=== PATIENT | male | born 1950 | race Caucasian/White ===

== ENCOUNTER 2023-05-20 10:33 | Emergency (ER) | payer OTHER, SELFPAY ==
[2023-05-20 10:36] VITALS: BP 129/81; PULSE 71; RESP 16; TEMP 37.2; O2SAT 98; BMI 23.3
--- NOTE | 2023-05-20 11:19 | EDS_ITS ---
HPI <GIRMA Redmond - Last Filed: 05/20/23 14:35> History of Present Illness Chief Complaint: Dental Narrative Narrative: Patient presenting due to dental pain that he has had for almost 2 months. He reports that he had a right upper molar removed by an oral surgeon on 04/01/2023. He was referred to the or oral surgeon due to having dental pain to this tooth and has been on 4 different courses of antibiotics. Antibiotics do not seem to be helping his pain. He reports that the pain is sometimes reproduced by touching the right side of his cheek or right eyelash or putting a hat on his head. However, he does also experience the symptoms on the left side of his face at times. reports intermittent subjective fevers. He reports that the pain is worsened by eating and his appetite has been decreased and he thinks he has been losing weight because of that. PFSH <GIRMA Redmond - Last Filed: 05/20/23 14:35> PFSH Home Medications hydrocodone-acetaminophen 5-325mg 5mg-325mg 1 tab PO Q4H PRN PRN Pain 2 days #7 TABLETS 05/20/23 [Rx Last Taken Unknown] Allergy/AdvReac Type Severity Reaction Status Date / Time No Known Allergies Allergy Verified 05/20/23 10:35 Social History Smoking Status: Former smoker ROS <GIRMA Redmond - Last Filed: 05/20/23 14:35> ROS ED Constitutional Constitutional ED: Denies chills or fever(s) ENT ENT ED: Reports dental pain Cardiovascular Cardiovascular: Denies chest pain Respiratory/Chest Respiratory/Chest: Denies cough or dyspnea Gastrointestinal Gastrointestinal: Denies abdominal pain, nausea or vomiting Musculoskeletal Musculoskeletal: Denies arthralgias or myalgias Integumentary Denies abscess or rash Neurologic Neurologic: Denies paresthesias or weakness EXAM <GIRMA Redmond - Last Filed: 05/20/23 14:35> Physical Exam Const Vital Signs: 05/20/23 10:36 05/20/23 13:12 Temperature 99 F 98.6 F Temperature Source Temporal Pulse Rate 71 64 Respiratory Rate 16 15 Blood Pressure 129/81 H 133/72 H Blood Pressure Mean 97 92 Pulse Ox 98 97 Oxygen Delivery Method Room Air Positive well nourished, well developed and no apparent distress General Appearance ED: well developed HEENT Reports normocephalic and head/scalp atraumatic HEENT Narrative: Right mandibular second molar removed, no abscess, no trismus. No pain to palpation to the right temporal region. Mouth ED: Yes moist mucous membranes normal Eyes PERRL and EOMs intact bilaterally Neck full ROM and supple Chest Wall inspection of chest normal Resp normal respiratory effort and clear to auscultation bilaterally Cardio regular rate and regular rhythm GI soft to palpation, non-tender, non-distended and no masses Back/Spine normal ROM and normal to inspection Extremity normal to inspection and full ROM Neuro oriented x3, CN's II-XII intact bilaterally, moves all extremities, no focal motor deficits and no sensory deficits noted Sensorium / Orientation: awake and alert Psych mental status grossly normal and thought process normal Skin no rashes or lesions noted and no wounds <Dr. Tom Barreto MD - Last Filed: 05/20/23 15:07> Physical Exam Const Vital Signs: 05/20/23 10:36 05/20/23 13:12 Temperature 99 F 98.6 F Temperature Source Temporal Pulse Rate 71 64 Respiratory Rate 16 15 Blood Pressure 129/81 H 133/72 H Blood Pressure Mean 97 92 Pulse Ox 98 97 Oxygen Delivery Method Room Air MDM <GIRMA Redmond - Last Filed: 05/20/23 14:35> [facility] Narrative Medical decision making narrative: Patient presenting today due to right upper dental pain he has had over the past few months. He has been on multiple rounds of antibiotics and has had his right upper molar removed by dental surgeon in March. He is now reporting that he will get a sharp spasming like pain to his face just from touching an eyelash or putting a hat on his head. I did consider trigeminal neuralgia and temporal arteritis, however, the pain is nonspecific and usually is on the right side of his face but he will also at times feel it on the left side of his face which is not consistent with these conditions. Se sinus/facial CT obtained and shows lucencies in the right upper teeth, no drainable abscess, it also shows sinus disease. He does have tenderness to his maxillary sinuses on exam. The reports that he had sinusitis for several months but has not tried taking any decongestants. Given he has already been on multiple rounds of antibiotics, I do not feel that he needs any additional antibiotics. I have encouraged that he obtain [id number] decongestants and begin taking those, follow-up with his PCP, and follow-up with the dentist due to patient having multiple cavities seen on exam and on CT scan on the right upper side. He was given [place] here for pain and will be given a few for home. Discharged home in stable condition and is comfortable with plan. Radiography Diagnostic Testing: Clinical Impression(s) from Imaging Studies Facial/Sinus 05/20/23 11:48 IMPRESSION: 1. Lucencies/cavitary lesion in right upper teeth. 2. No evidence of discrete fluid collection or drainable abscess. 3. Sinus disease. Electronically Signed: Kelton Aviles MD at 12:29 EST , <Dr. Tom Barreto MD - Last Filed: 05/20/23 15:07> [facility] Narrative Medical decision making narrative: Patient presenting today due to right upper dental pain he has had over the past few months. He has been on multiple rounds of antibiotics and has had his right upper molar removed by dental surgeon in March. He is now reporting that he will get a sharp spasming like pain to his face just from touching an eyelash or putting a hat on his head. I did consider trigeminal neuralgia and temporal arteritis, however, the pain is nonspecific and usually is on the right side of his face but he will also at times feel it on the left side of his face which is not consistent with these conditions. Se sinus/facial CT obtained and shows lucencies in the right upper teeth, no drainable abscess, it also shows sinus disease. He does have tenderness to his maxillary sinuses on exam. The reports that he had sinusitis for several months but has not tried taking any de congestants. Given he has already been on multiple rounds of antibiotics, I do not feel that he needs any additional antibiotics. I have encouraged that he obtain [id number] decongestants and begin taking those, follow-up with his PCP, and follow-up with the dentist due to patient having multiple cavities seen on exam and on CT scan on the right upper side. He was given [facility] here for carlos n and will be given a few for home. Discharged home in stable condition and is comfortable with plan. I have personally performed a face to face assessment of the patient and have reviewed the [place] Note. I performed a substantive portion of the visit including all aspects of the following. My cheng findings include: History is patient had a right upper molar extracted, tooth #30 by his dentist. He has completed 3 courses of antibiotics. He continues to have pain over the right maxillary region and area of extraction. He does have history of sinus infection. He denies fever, chills night sweats. [place] double vision, blurred vision loss of vision. He reports mild congestion. He denies difficulty opening closing his mouth. He denies change in voice. He denies neck pain or neck stiffness. He denies history medic fever, heart murmur or mitral valve prolapse. He is not on any immunosuppressive meds. Exam is remarkable for tenderness over the right and left maxillary sinus more so right. Socket is still empty. He has significant dental disease with obvious caries. There is no evidence of periodontal abscess. There is no facial swelling or cellulitis. There is no preauricular lymphadenopathy. There is no submandibular lymphadenopathy. Trachea is midline. There is no stridor. There is no dysphonia. There is no concern for masseter space infection. Medical Decision Making CT of sinuses was obtained since he has completed 3 courses of antibiotics and has frontal sinus tenderness. CT does reveal evidence of maxillary sinusitis. He also has multiple dental caries. Suspect the pain is due to the multiple dental caries and not the sinusitis since he has completed 3 course of antibiotics which included amoxicillin, Augmentin and an additional antibiotic. Other additions or changes: Discharged home to follow-up with his dentist Radiography Diagnostic Testing: Clinical Impression(s) from Imaging Studies Facial/Sinus 05/20/23 11:48 IMPRESSION: 1. Lucencies/cavitary lesion in right upper teeth. 2. No evidence of discrete fluid collection or drainable abscess. 3. Sinus disease. Electronically Signed: Kelton Aviles MD at 12:29 EST , Discharge Plan Triage Chief Complaint: Dental ED Midlevel Provider: Daiana Gautam ED Provider: Tom Barreto Dx/Rx/DC Orders Clinical Impression: Dental caries, Sinusitis, Pain, dental Instructions: ED Dental Cavity, ED Sinusitis (Not Bacterial) Prescriptions: New hydrocodone-acetaminophen 5-325 mg tablet 1 tab PO Q4H PRN PRN (Reason: Pain) 2 Days Qty: 7 0RF Primary Care Provider: [facility] Referrals: [place] [Primary Care Provider] - Activity Restrictions/Additional Instructions: Please follow-up with the dentist. Begin taking an [id number] decongestant such as Mucinex for the sinus pressure. Follow-up with PCP. Disposition Disposition: Home, Self Care Discharge Date/Time: 05/20/23 13:13
--- NOTE | 2023-05-20 11:48 | CT_ITS ---
INDICATION: pain EXAMINATION: CT FACIAL BONES - CT Maxillofacial W/O Contrast Injection TECHNIQUE: Helically acquired images were obtained of the facial bones. A radiation dose optimization technique was used for this scan. IV Contrast dosage and agent: None. RADIATION DOSAGE (If Supplied By Facility): CTDIvol = ( 29.38 ) mGy, DLP = ( 598.88 ) mGycm COMPARISON: No relevant prior comparison study available FINDINGS: SOFT TISSUES: No focal subcutaneous swelling. No discrete fluid collections. VISUALIZED PARANASAL SINUSES: Mucosal thickening of the ethmoids and maxillary sinuses with possible retention cysts in the maxillary sinuses. VISUALIZED MASTOID AIR CELLS: Clear. FACIAL BONES, MANDIBLE AND TMJs: No displaced facial bone fracture. No lytic or blastic abnormality. VISUALIZED DENTITION: Lucencies consistent with cavitary lesions in right upper teeth probably number 3 and 4. ORBITAL CONTENTS: Both globes, extraocular muscles and retrobulbar fat appear unremarkable. CT/Sinus/Facial Bone IMPRESSION: 1. Lucencies/cavitary lesion in right upper teeth. 2. No evidence of discrete fluid collection or drainable abscess. 3. Sinus disease. Electronically Signed: Kelton Aviles MD at 12:29 EST ,
[2023-05-20] MEDS: HYDROcodone Bitartrate/Apap 5/325 Tablet PO (11:49)
[2023-05-20 13:12] VITALS: BP 133/72; PULSE 64; RESP 15; TEMP 37; O2SAT 97
== END 2023-05-20 13:13 | disposition home or self-care (01) ==
PROVIDERS: Emergency Provider Emergency Medicine; Visit Provider Emergency Medicine
DX: K08.89 Other specified disorders of teeth and supporting structures (principal); K02.9 Dental caries, unspecified; J32.0 Chronic maxillary sinusitis; Z87.891 Personal history of nicotine dependence; Z98.818 Other dental procedure status
CPT/HCPCS: 70486; 99282

== ENCOUNTER 2024-05-24 13:04 | Emergency (ER) | payer OTHER, SELFPAY ==
[2024-05-24 13:07] VITALS: BP 114/65; PULSE 61; PULSE 64; RESP 10; RESP 15; TEMP 36.4; O2SAT 98; BMI 24.9
--- NOTE | 2024-05-24 13:20 | RAD_ITS ---
PROCEDURE: CHEST 1 VIEW (PORTABLE) REASON FOR EXAM: 74-year-old male, syncope. TECHNIQUE: Frontal view of the chest. COMPARISON: None. FINDINGS: The heart size is normal. Calcification of the thoracic aorta. No focal consolidation, pleural effusion or pneumothorax. Degenerative changes are identified within the thoracic spine. RAD/Chest 1 View (Portable) IMPRESSION: NEGATIVE CHEST. Reading Location: [id number]
--- NOTE | 2024-05-24 13:21 | EKG12_ITS ---
Test Reason : ALT Blood Pressure : */* mmHG Vent. Rate : 62 BPM Atrial Rate : 62 BPM P-R Int : 142 ms QRS Dur : 84 ms QT Int : 412 ms P-R-T Axes : 50 42 42 degrees QTcB Int : 418 ms Normal sinus rhythm Normal ECG Confirmed by Twin Hardin ([id number]), non linear editor DARWIN POLLACK ([id number]) on 05/25/2024 11:03:11 AM Referred By: Confirmed By: Twin Hardin
[2024-05-24 13:29] LABS: Absolute Lymphocyte Count 2.59 X10^3/uL (0.83-4.51); Absolute Neutrophil Count 5.3 X10^3/uL (2.0-7.7); Basophil# 0.07 X10^3/uL; Basophil% 0.8 % (0-1); Eosinophil# 0.22 X10^3/uL; Eosinophils% 2.5 % (0-5); Hematocrit 42.2 % (40-54); Hemoglobin 14.4 g/dL (13.0-16.5); Lymphocyte # 2.59 X10^3/ul (0.83-4.51); Lymphocyte % 29.4 % (19-41); Mean Corp Hgb Conc 34.1 g/dL (32-36); Mean Corpuscular Hgb 31.6 pg (27.0-32.0); Mean Corpuscular Volume 92.7 fL (80-94); Mean Platelet Vol. 10.8 fl (6.2-12.0); Monocyte# 0.62 X10^3/uL; NRBC Flagged by Analyzer 0 % (0-5); Neutrophil # 5.27 X10^3/uL (2.7-7.7); Neutrophil % 59.8 % (47-70); Platelet Count 252 K/mm3 (150-450); RBC Distribution Width CV 13.2 % (11.6-14.6); RBC Distribution Width SD 44.9 fl (35.1-43.9); Red Blood Count 4.55 M/mm3 (4.6-6.2); White Blood Count 8.8 K/mm3 (4.4-11.0)
--- NOTE | 2024-05-24 13:38 | EX.ED.DYSGE1 ---
HPI History of Present Illness Chief Complaint: Alt LOC Informant: patient, family and EMS Narrative Narrative: 74-year-old male presenting to the emergency room following an unresponsive episode. Patient states that he was in his normal state of health today. He went to the store and ate for chocolate cupcakes. He was at his daughter's and seemed normal. He went home strongly a musical instrument and was in his chair. It was reported that his noted that he went unresponsive. EMS was called. He noted him to be hypotensive which has resolved. Patient denies any preceding chest pain dyspnea palpitations. He notes now he has a very slight frontal headache. He takes gabapentin for chronic dental pain. He denies any prior syncope. No black or bloody stools. [facility] Medical History (Updated 05/24/24 @ 14:[address] Everton Can DO) Chronic facial pain Home Medications ?Medication ?Instructions ?Recorded ?Last Taken ?Type hydrocodone-acetaminophen 5-325mg 1 tab PO Q4H PRN PRN Pain 2 days 05/20/23 Unknown Rx 5mg-325mg #7 TABLETS gabapentin 300 mg capsule 300 mg PO BID 05/24/24 Unknown History Allergy/AdvReac Type Severity Reaction Status Date / Time No Known Allergies Allergy Verified 05/24/24 13:07 Surgical History H/O tooth extraction Social History Smoking Status: Former smoker ROS ROS ED Constitutional Constitutional ED: Denies chills or weight loss Eyes Eyes: Denies change in vision or diplopia ENT ENT ED: Denies ear pain, rhinorrhea or sore throat Cardiovascular Cardiovascular: Denies chest pain, orthopnea, palpitations or racing heartbeat Respiratory/Chest Respiratory/Chest: Reports other Details: Reported unresponsive episode with hypotension ; Denies cough, dyspnea or orthopnea Gastrointestinal Gastrointestinal: Denies abdominal pain, diarrhea, nausea or vomiting Genitourinary Genitourinary ED: Denies dysuria, hematuria or urinary frequency Musculoskeletal Musculoskeletal: Denies arthralgias or myalgias Integumentary Denies abscess or rash Neurologic Neurologic: Denies headache(s) or weakness Psychiatric Psychiatric: Denies anxiety, depression, suicidal ideation or suicidal thoughts Endocrine Endocrinology: Denies polydipsia, polyphagia or polyuria Allergic/Immunologic Allergic/Immunologic ED: Denies mouth swelling, tongue swelling or urticaria EXAM Physical Exam Const Vital Signs: 05/24/24 13:07 05/24/24 13:07 05/24/24 14:05 Temperature 97.6 F L Temperature Source Oral Pulse Rate 64 61 53 L Respiratory Rate 10 L 15 Blood Pressure 114/65 114/65 129/78 H Blood Pressure Mean 81 81 95 Pulse Ox 98 98 Oxygen Delivery Method Room Air Room Air Positive well nourished and well developed General Appearance ED: well developed HEENT Reports normocephalic, head/scalp atraumatic and moist mucous membranes Eyes PERRL and EOMs intact bilaterally Neck no lymphadenopathy, supple and no JVD Resp normal respiratory effort and clear to auscultation bilaterally Cardio regular rate, regular rhythm and no murmurs GI normal to inspection, nondistended, normoactive bowel sounds and non-tender Palpation: soft Back/Spine no CVA tenderness and normal ROM Extremity normal to inspection General Extremety ED: Negative for edema General Extremity: Negative for edema Neuro oriented x3 and CN's II-XII intact bilaterally Sensorium / Orientation: alert Motor Exam: strength 5/5 throughout Psych mental status grossly normal Mood & Affect: Negative for depressed or tearful Skin no rashes or lesions noted and no wounds MDM MDM MDM Narrative Medical decision making narrative: Differential diagnosis includes vasovagal syncope cardiac syncope hypotension intracranial hemorrhage acute coronary syndrome cardiac dysrhythmia Basic blood work showed initial troponin 11 glucose 201 creatinine 1.33 normal electrolytes. White count 8.8 hemoglobin 14.4 platelet count is 252. My independent interpretation of the chest x-ray is no acute process. EKG is a normal sinus rhythm ventricular rate of [address] of the brain was obtained which was negative. History & Record Review Discussion w/independent historian: EMS personnel, Patient and Family Lab Data Attestation: I reviewed the patient's lab results. Labs: Laboratory Results - last 24 hr 05/24/24 13:17 WBC 8.8 RBC 4.55 L Hgb 14.4 Hct 42.2 MCV 92.7 MCH 31.6 MCHC 34.1 RDW Std Deviation 44.9 H RDW Coeff of Edith 13.2 Plt Count 252 MPV 10.8 Immature Gran % (Auto) 0.500 Neut % (Auto) 59.8 Lymph % (Auto) 29.4 [place] % (Auto) 7.0 Eos % (Auto) 2.5 Baso % (Auto) 0.8 Absolute Neuts (auto) 5.3 Absolute Lymphs (auto) 2.59 Nucleated RBC % 0 Sodium 140 Potassium 4.3 Chloride 103 Carbon Dioxide 25.4 Anion Gap 11 BUN 17 Creatinine 1.33 H Estim Creat Clear Calc 45.56 L Est GFR (MDRD) Non-Af 56 L BUN/Creatinine Ratio 12.9 Glucose 201 H Calcium 9.0 Troponin T High Sens 11 Radiography Diagnostic Testing: Clinical Impression(s) from Imaging Studies Chest X-Ray 05/24/24 13:20 IMPRESSION: NEGATIVE CHEST. Reading Location: [facility] Brain CT 05/24/24 14:13 IMPRESSION: No acute intracranial finding. Mild chronic microvascular ischemic changes. Reading Location: [facility] EKG Initial EKG: Attestation: I personally reviewed and interpreted this EKG as follows: Comments: Normal sinus rhythm ventricular rate of 62 bpm. Discharge Plan Triage Chief Complaint: Alt LOC ED Provider: Everton Can Dx/Rx/DC Orders Clinical Impression: Unresponsive episode, Acute hypotension Instructions: Causes of Syncope Prescriptions: No Action hydrocodone-acetaminophen 5-325 mg tablet 1 tab PO Q4H PRN PRN (Reason: Pain) 2 Days Qty: 7 0RF gabapentin 300 mg capsule 300 mg PO BID Primary Care Provider: [facility] Referrals: [place] [Primary Care Provider] - 1 Week Activity Restrictions/Additional Instructions: Please return to the emergency department if your symptoms recur. At this point I do not see an obvious cause for your symptomology today. Print Language: [place]
[2024-05-24 13:49] LABS: Anion Gap 11 (5-15); BUN 17 mg/dL (4-19); BUN/Creat Ratio 12.9 RATIO (10-20); Carbon Dioxide 25.4 mmol/L (21.0-32.0); Chloride 103 mmol/L (98-108); Creatinine, Serum 1.33 mg/dL (0.70-1.20); EST Glomerular Filtration Rate 56 (>60); Estimated Creatinine Clearance 45.56 ml/min (50-250); Glucose 201 mg/dL (70-99); Potassium 4.3 mmol/L (3.3-5.1); Sodium Level 140 mmol/L (133-145)
[2024-05-24 14:05] VITALS: BP 129/78; PULSE 53
--- NOTE | 2024-05-24 14:13 | CT_ITS ---
EXAM: BRAIN/HEAD WITHOUT CONTRAST CLINICAL HISTORY: 74-year-old male, unresponsive episode, headache. COMPARISON: None. TECHNIQUE: Routine CT imaging of the head without IV contrast. Additional multiplanar reformats were obtained. Dose reduction techniques were used including intermediate exposure control (AEC),iterative reconstruction technique, and/or mA and/or KV dose adjustments based on patient's size. FINDINGS: The ventricles and subarachnoid spaces are appropriate for patient age. Mild scattered supratentorial white matter hypodensities. The rojo-white matter interfaces are otherwise maintained. No acute intracranial hemorrhage or herniation. The basal cisterns are patent. Mild mucosal thickening of the bilateral maxillary and ethmoid sinuses. The orbits are unremarkable. No acute calvarial fracture or scalp hematoma. CT/Brain/Head without Contrast IMPRESSION: No acute intracranial finding. Mild chronic microvascular ischemic changes. Reading Location: [id number]
[2024-05-24 14:14] LABS: Troponin T High Sensitivity 11 ng/L (<=22)
[2024-05-24] MEDS: Acetaminophen 500 MG Tablet 1000 MG PO (14:54)
[2024-05-24 15:00] VITALS: BP 132/65; PULSE 64; RESP 18; O2SAT 100
[2024-05-24 16:00] VITALS: BP 137/72; PULSE 61; RESP 18; O2SAT 100
[2024-05-24 16:30] LABS: Troponin T High Sens 2 HR 9 ng/L (<=22)
== END 2024-05-24 16:53 | disposition home or self-care (01) ==
LOC: ED 13:57
PROVIDERS: Emergency Provider Emergency Medicine; Visit Provider Emergency Medicine
DX: R40.4 Transient alteration of awareness (principal); I95.9 Hypotension, unspecified; G89.29 Other chronic pain; K08.89 Other specified disorders of teeth and supporting structures; R51.9 Headache, unspecified; Z87.891 Personal history of nicotine dependence
CPT/HCPCS: 70450; 71045; 80048; 84484; 85025; 93005; 99285